=== PATIENT | female | born 1950 | race Caucasian/White ===

== ENCOUNTER 2018-07-12 14:17 | Emergency (ER) | payer OTHER, BC ==
[2018-07-12 14:41] VITALS: BMI 39.1
--- NOTE | 2018-07-12 14:41 | PDOC ---
Rapid Medical Evaluation Chief Complaint: Pain Time Seen by Provider: 07/12/18 14:36 Medical Evaluation: Allergies Allergy/AdvReac Type Severity Reaction Status Date / Time Penicillins Allergy Severe Itching Verified 01/27/16 11:02 07/12/18 14:37 I have performed a brief in-person evaluation of this patient. The patient presents with a chief complaint of: c/o pain to LLQ ( years) worse today - states has UTI but no medications yet Pertinent physical exam findings: abd pain LLQ with radiation to back I have ordered the following: UA/ UCx The patient will proceed to the ED for further evaluation. 07/12/18 14:38 07/12/18 14:41 Discharge Disposition - Diagnosis Abdominal pain - Referrals - Patient Instructions - Post Discharge Activity
[2018-07-12] MEDS ORDERED: morphine SULFATE 4 MG/ML VIAL IVPUSH ONE (17:36)
[2018-07-12 17:44] LABS: EPI CELLS 1.5 /HPF (0-5/HPF); URINE APPEARANCE CLEAR; URINE BACTERIA 1046.2 /hpf (NEGATIVE); URINE BILIRUBIN NEGATIVE (NEGATIVE); URINE CASTS 21 /lpf (0-8); URINE COLOR YELLOW; URINE GLUCOSE (UA) NEGATIVE (NEGATIVE); URINE KETONE NEGATIVE (NEGATIVE); URINE LEUK ESTERASE 2+ (NEGATIVE); URINE NITRITE POSITIVE (NEGATIVE); URINE PROTEIN NEGATIVE (NEGATIVE); URINE UROBILINOGEN 0.2 mg/dL (0.2-1.0); URINE WBC 26 /hpf (0-5)
[2018-07-12] MEDS ORDERED: morphine SULFATE 4 MG/ML VIAL ONE (17:56)
[2018-07-12 18:09] LABS: EOS % 1.1 % (0-4.5); HEMATOCRIT 23.1 % (32.4-45.2); HEMOGLOBIN 7.1 GM/dL (10.7-15.3); LYMPH % 20.3 % (8-40); MCHC 30.6 g/dl (32.0-36.0); MEAN CELL VOLUME 81.9 fl (80-96); MEAN PLT VOLUME 9.3 fl (7.5-11.1); MONO % 6.7 % (3.8-10.2); NEUT % 70.9 % (42.8-82.8); PLATELET COUNT 390 K/MM3 (134-434); RBC 2.83 M/mm3 (3.60-5.2); RDW 16.1 % (11.6-15.6); WHITE BLOOD COUNT 11.8 K/mm3 (4.0-10.0)
--- NOTE | 2018-07-12 18:12 | PDOC ---
History of Present Illness - General Chief Complaint: Pain Stated Complaint: SENT BY PCP Time Seen by Provider: 07/12/18 14:36 History Source: Patient Exam Limitations: No Limitations - History of Present Illness Initial Comments: 07/12/18 18:12 68 yo female pmh HTN, DM, chronic anemia, asthma, 2 left sided hernias shx of hysterectomy presents to the ED with chronic left sided lower abdominal pain that acutely worsened yesterday and today. Pt presents from PCP office for CT scan to r/o acute intra abdominal or bony pathology (discussed with PCP Long) . Pt admits to pain in the same location for months but yesterday and today have been at its worst. Pain described as squeezing, LLQ with radiation to the left flank, made worse with movement. Pt has had multiple GI Doctors assess her with EGDs, colonoscopies and CTs without a diagnosis as to the cause of her pain. Denies F/C/N/V, back pain, changes in bowel or bladder habits, CP, SOB Past History - Past Medical History Allergies/Adverse Reactions: Allergies Allergy/AdvReac Type Severity Reaction Status Date / Time Penicillins Allergy Severe Itching Verified 07/12/18 14:37 Home Medications: Ambulatory Orders Omeprazole 20 mg PO DAILY 12/30/14 Ascorbate Calcium [Vitamin C] 500 mg PO DAILY 06/30/16 Losartan Potassium 100 mg PO DAILY 06/30/16 Sulfamethoxazole/Trimethoprim [Bactrim Ds -] 1 tab PO BID 14 Days #28 tablet Anemia: Yes (IRON DEFICIENCY) Asthma: Yes COPD: No GI Disorders: Yes (GERD;HIATAL HERNIA;MOOKIE ULCERS) Disorders: (GALLSTONES) HTN: Yes - Surgical History Abdominal Surgery: Yes Cholecystectomy: Yes - Immunization History Immunization Up to Date: Yes - Suicide/Smoking/Psychosocial Hx Smoking History: Never smoked Hx Alcohol Use: No Drug/Substance Use Hx: No Substance Use Type: None Hx Substance Use Treatment: No Review of Systems - Review of Systems Constitutional: No: Chills, Fever Respiratory: No: Shortness of Breath Cardiac (ROS): No: Chest Pain ABD/GI: Yes: Other (LLQ abdominal pain). No: Constipated, Diarrhea, Nausea, Vomiting : Yes: Flank Pain (left). No: Burning, Dysuria, Discharge, Frequency, Hematuria, Incontinence Musculoskeletal: No: Back Pain Integumentary: No: Change in Color Neurological: No: Headache, Numbness, Paresthesia, Weakness *Physical Exam - Vital Signs Last Vital Signs Temp Pulse Resp BP Pulse Ox 98.2 F 107 H 16 134/59 L 97 07/12/18 14:37 07/12/18 14:37 07/12/18 14:37 07/12/18 14:37 07/12/18 14:37 - Physical Exam General Appearance: Yes: Nourished, Appropriately Dressed. No: Apparent Distress HEENT: positive: EOMI Neck: positive: Supple Respiratory/Chest: positive: Lungs Clear, Normal Breath Sounds. negative: Crackles, Rales, Rhonchi, Stridor, Wheezing Cardiovascular: positive: Regular Rhythm, S1, S2, Tachycardia. negative: Edema , JVD, Murmur Vascular Pulses: Dorsalis-Pedis (R): 4+, Doralis-Pedis (L): 4+ Gastrointestinal/Abdominal: positive: Flat, Soft, Tenderness (LLQ). negative: Pulsatile Mass, Distended, Guarding, Rebound Musculoskeletal: positive: Normal Inspection, CVA Tenderness (left) Extremity: positive: Normal Capillary Refill, Normal Inspection Integumentary: positive: Normal Color, Dry, Warm Neurologic: positive: Fully Oriented, Alert, Normal Mood/Affect ED Treatment Course - LABORATORY CBC & Chemistry Diagram: 07/12/18 17:50 07/12/18 17:50 - ADDITIONAL ORDERS Additional order review: Laboratory Results 07/12/18 16:56 Urine Color Yellow Urine Appearance Clear Urine pH 6.0 Ur Specific [place] 1.019 Urine Protein Negative Urine Glucose (UA) Negative Urine Ketones Negative Urine Blood Negative Urine Nitrite Positive H Urine Bilirubin Negative Urine Urobilinogen 0.2 Ur Leukocyte Esterase 2+ H Urine WBC (Auto) 26 Urine Casts (Auto) 21 U Epithel Cells (Auto) 1.5 Urine Bacteria (Auto) 1046.2 07/12/18 17:50 RBC 2.83 L MCV 81.9 MCHC 30.6 L RDW 16.1 H MPV 9.3 Neutrophils % 70.9 Lymphocytes % 20.3 Monocytes % 6.7 Eosinophils % 1.1 Basophils % 1.0 - Medications Given in the ED: ED Medications Discontinued Medications Generic Name Dose Route Start Last Admin Trade Name Freq PRN Reason Stop Dose Admin Morphine Sulfate 4 mg 07/12/18 17:36 07/12/18 18:00 Morphine Sulfate IVPUSH 07/12/18 17:37 4 mg ONCE ONE Administration Medical Decision Making - Medical Decision Making 07/12/18 23:26 68 yo female pmh HTN, DM, chronic anemia, asthma, 2 left sided hernias shx of hysterectomy presents to the ED with chronic left sided lower abdominal pain that acutely worsened yesterday and today. Pt presents from PCP office for CT scan to r/o acute intra abdominal or bony pathology (discussed with PCP Long) . Pt admits to pain in the same location for months but yesterday and today have been at its worst. Pain described as squeezing, LLQ with radiation to the left flank, made worse with movement. Pt has had multiple GI Doctors assess her with EGDs, colonoscopies and CTs without a diagnosis as to the cause of her pain. Denies F/C/N/V, back pain, changes in bowel or bladder habits, CP, SOB Vitals show elevated HR otherwise WNL pt admits to excessive abdominal pain, given 4mg morphine with improvement, resting comfortably DDX INLT: UTI, renal stones, diverticulitis, ovarian cyst/rupture EKG NSR without ST changes CBC shows anemia. Hx of chronic anemia with transfusions at [facility]. PCP will be contacted regarding this finding after CTAP resulted CMP, lipase, trops wnl UA shows UTI, pt will be treated with antibiotics Pt pending abdominal CT clinically stable Pt s/o to night team. *DC/Admit/Observation/Transfer Diagnosis at time of Disposition: Abdominal pain, Anemia, Chronic GI bleeding - Discharge Dispostion Disposition: HOME Condition at time of disposition: Stable - Prescriptions Prescriptions: Sulfamethoxazole/Trimethoprim [Bactrim Ds -] 1 tab PO BID 14 Days #28 tablet - Referrals Referrals: Suzy Garcia [Other] - 24 hours Shan Perez MD [Primary Care Provider] - Call tomorrow - Patient Instructions Additional Instructions: You were seen in the Emergency Department for abdominal pain. Your CT scan showed no acute findings. However, your blood counts were low (Hemoglobin 7.1). Further, your urine was concerning for urinary tract infection; this is likely contributing to your abdominal pain. It is very important that you follow up with your talent buyer Dr. Garcia within 24 hours of discharge for further evaluation of your anemia and blood and / or iron transfusions. Further it is recommended that you follow up with your primary care physician within 24- 28 hours of discharge. You will take antibiotic Bactrim one tablet every 12 hours for 14 days for urinary tract infection. Return to the nearest Emergency Department if you experience worsening symptoms , subjective fever,s chills, shortness of breath, chest pain, palpitations, worsening abdominal pain, nausea, vomiting, any rectal bleeding or blood streaked bowel movements, blood with urine, or painful urination, and lightheadedness, dizziness, fall, loss of consciousness, any trauma. - Post Discharge Activity
[2018-07-12 18:43] LABS: ALBUMIN 3.4 g/dl (3.4-5.0); BILIRUBIN,TOTAL 0.3 mg/dL (0.2-1); CALCIUM 8.6 mg/dL (8.5-10.1); CREATININE 0.6 mg/dL (0.55-1.3); POTASSIUM 4.2 mmol/L (3.5-5.1)
--- NOTE | 2018-07-12 19:51 | PDOC ---
*Physical Exam - Vital Signs Last Vital Signs Temp Pulse Resp BP Pulse Ox 98.2 F 107 H 16 134/59 L 97 07/12/18 14:37 07/12/18 14:37 07/12/18 14:37 07/12/18 14:37 07/12/18 14:37 ED Treatment Course - LABORATORY CBC & Chemistry Diagram: 07/12/18 17:50 07/12/18 17:50 - ADDITIONAL ORDERS Additional order review: Laboratory Results 07/12/18 07/12/18 17:50 16:56 Sodium 140 Potassium 4.2 Chloride 105 Carbon Dioxide 28 Anion Gap 7 L BUN 15 Creatinine 0.6 Est GFR (CKD-EPI)AfAm 108.55 Est GFR (CKD-EPI)NonAf 93.66 Random Glucose 99 Calcium 8.6 Total Bilirubin 0.3 AST 11 L ALT 17 Alkaline Phosphatase 125 H Total Protein 7.0 Albumin 3.4 Lipase 107 Urine Color Yellow Urine Appearance Clear Urine pH 6.0 Ur Specific [place] 1.019 Urine Protein Negative Urine Glucose (UA) Negative Urine Ketones Negative Urine Blood Negative Urine Nitrite Positive H Urine Bilirubin Negative Urine Urobilinogen 0.2 Ur Leukocyte Esterase 2+ H Urine WBC (Auto) 26 Urine RBC (Auto) 4.0 Urine Casts (Auto) 21 U Epithel Cells (Auto) 1.5 Urine Bacteria (Auto) 1046.2 07/12/18 17:50 RBC 2.83 L MCV 81.9 MCHC 30.6 L RDW 16.1 H MPV 9.3 Neutrophils % 70.9 Lymphocytes % 20.3 Monocytes % 6.7 Eosinophils % 1.1 Basophils % 1.0 - Medications Given in the ED: ED Medications Discontinued Medications Generic Name Dose Route Start Last Admin Trade Name Freq PRN Reason Stop Dose Admin Morphine Sulfate 4 mg 07/12/18 17:36 07/12/18 18:00 Morphine Sulfate IVPUSH 07/12/18 17:37 4 mg ONCE ONE Administration Medical Decision Making - Medical Decision Making 07/12/18 19:49 Sign out obtained from Dr. Watson. In brief, patient is a 68 year old female with history of hypertension, diabetes mellitus, chronic anemia (baseline Hb 7-8), asthma, surgical history of left sided hernia repair, presents from her primary care physicians office for left lower quadrant abdominal pain acutely worsening over the past two days. Hb 7.1 Patient endorses pain improvement after Morphine. She is hungry and requests food. Pending CT abdomen, pelvis. 07/12/18 21:01 CT abdomen, pelvis shows no acute pathology, or changes compared to prior study. UA suggestive of UTI. Prescribed Bactrim. Patient refuses blood transfusion, further workup here. She would like to follow up with vein pumper at [facility]. Case discussed case with patient's primary care physician. After discussion with patient and primary care physician, patient will be discharged to follow up with primary care physician, and vein pumper tomorrow. Physician referrals provided to patient. Currently, patient has no symptoms of anemia; denies subjective dizziness, changes in vision, lightheadedness, shortness of breath, chest pain, palpitations. Patient tolerating oral intake without abdominal pain, nausea, vomiting. Patient and primary care physician in agreeing with the plan. All questions, concerns addressed and answered. *DC/Admit/Observation/Transfer Diagnosis at time of Disposition: Abdominal pain, Anemia, Chronic GI bleeding - Discharge Dispostion Disposition: HOME Condition at time of disposition: Stable Decision to Admit order: No - Prescriptions Prescriptions: Sulfamethoxazole/Trimethoprim [Bactrim Ds -] 1 tab PO BID 14 Days #28 tablet - Referrals Referrals: hSan Perez MD [Primary Care Provider] - Call tomorrow Suzy Garcia [Other] - 24 hours - Patient Instructions Additional Instructions: You were seen in the Emergency Department for abdominal pain. Your CT scan showed no acute findings. However, your blood counts were low (Hemoglobin 7.1). Further, your urine was concerning for urinary tract infection; this is likely contributing to your abdominal pain. It is very important that you follow up with your vein pumper Dr. Garcia within 24 hours of discharge for further evaluation of your anemia and blood and / or iron transfusions. Further it is recommended that you follow up with your primary care physician within 24- 28 hours of discharge. You will take antibiotic Bactrim one tablet every 12 hours for 14 days for urinary tract infection. Return to the nearest Emergency Department if you experience worsening symptoms , subjective fever,s chills, shortness of breath, chest pain, palpitations, worsening abdominal pain, nausea, vomiting, any rectal bleeding or blood streaked bowel movements, blood with urine, or painful urination, and lightheadedness, dizziness, fall, loss of consciousness, any trauma. - Post Discharge Activity
--- NOTE | 2018-07-12 20:52 | PDOC ---
Documentation entered by Rosina Richards SCRIBE, acting as scribe for Jonathan Hicks MD. Jonathan Hicks MD: This documentation has been prepared by the Susie konx Daisy, SCRIBE, under my direction and personally reviewed by me in its entirety. I confirm that the documentation accurately reflects all work, treatment, procedures, and medical decision making performed by me. Attending Attestation - Resident Resident Name: Greg Watson - ED Attending Attestation I have performed the following: I have examined & evaluated the patient, The case was reviewed & discussed with the resident, I agree w/resident's findings & plan, Exceptions are as noted - HPI HPI: 07/12/18 17:33 The patient is a 68YOF with PMH of DM, HTN, chronic anemia, and asthma, and 2 hernias who presents to the ED for left sided abdominal and left flank pain. Pt states it started 2 days ago. Denies N/V. Denies diarrhea. Denies CP/SOB. Denies F/C. Pt has had similar pain in the past. She has been evaluated by Dr. Miller and Dr. Patel, had multiple colonoscopies and endoscopies, all of which were negative. Allergies: Penicillins Surgeries: hysterectomy PCP: Dr. Alves - Physicial Exam PE: 07/12/18 20:48 GENERAL: Awake, alert, and fully oriented, in no acute distress. HEAD: No signs of trauma EYES: PERRLA, EOMI, sclera anicteric, conjunctiva clear ENT: Auricles normal inspection, hearing grossly normal, nares patent, oropharynx clear without exudates. Moist mucosa NECK: Nontender, no stepoffs, Normal ROM, supple, no lymphadenopathy, JVD, or masses LUNGS: Breath sounds equal, clear to auscultation bilaterally. No wheezes, and no crackles HEART: Regular rate and rhythm, normal S1 and S2, no murmurs, rubs or gallops ABDOMEN: + LLQ tenderness, normoactive bowel sounds. No guarding, no rebound. No masses EXTREMITIES: Normal range of motion, no edema. No clubbing or cyanosis. No cords, erythema, or tenderness NEUROLOGICAL: Cranial nerves II through XII intact. 5/5 strength and sensation in all extremities, Normal speech, normal gait, normal cerebellar function SKIN: Warm, Dry, normal turgor, no rashes or lesions noted. - Medical Decision Making 07/12/18 20:49 68 F with LLQ and L flank pain. Possible pyelo/kidney stone vs colitis/ diverticulitis. - Labs - CT Labs notable for Hb 7.1. This appears to be near pt's baseline. Pt gets regular blood transfusions for chronic anemia. Discussed with Dr. Trinidad, who recommended that pt f/u tomorrow for repeat labs and possible transfusion. Pt without any symptoms of anemia at this time. Denies CP/SOB/palpitations/ lightheadedness. PT also with UTI, will tx with bactrim. CT negative for acute pathology. Pt reassessed - now feels much better. Pain is well controlled Pt is well appearing, with normal vitals. Clinically stable for DC at this time. I discussed the physical exam findings, ancillary test results and final diagnoses with the patient. I answered all of the patient's questions. The patient was satisfied with the care received and felt comfortable with the discharge plan and treatment plan. The patient agrees to follow up with the primary care physician within 24-72 hours.
[2018-07-12 21:15] VITALS: BP 114/54; PULSE 62; TEMP 98.8
== END 2018-07-12 21:15 | disposition home or self-care (01) ==
LOC: JER 14:17
PROC: 3E023NZ Introduction of Analgesics, Hypnotics, Sedatives into Muscle, Percutaneous Approach (ICD-10-PCS; principal; 2018-07-12)
DX: N39.0 Urinary tract infection, site not specified (principal); I10 Essential (primary) hypertension; K92.2 Gastrointestinal hemorrhage, unspecified; E11.9 Type 2 diabetes mellitus without complications; D50.9 Iron deficiency anemia, unspecified; Z87.19 Personal history of other diseases of the digestive system
CPT/HCPCS: 36415; 74177-TC; 80053; 81003; 83605; 83690; 85025; 87086; 87186; 96374; 99283-25

== ENCOUNTER 2018-07-13 06:30 | Observation (INO) | payer OTHER, BC ==
--- NOTE | 2018-07-13 08:23 | PDOC ---
Attending Attestation - Resident Resident Name: Greg Watson - ED Attending Attestation I have performed the following: I have examined & evaluated the patient, The case was reviewed & discussed with the resident, I agree w/resident's findings & plan, Exceptions are as noted - HPI HPI: 07/13/18 08:24 68y F hx ofhtn, hl, transfusion dependent anemia (unknown source), asthma, represents to the ED - pt was seen in the ED last night nad diganosed with a UTI and was noted to be anemic to 7.1. The pt was dc to fu with hemonc as outptaient for outpatient transufsion as she was only minimally sypmtomatic. Pt noted that the cancer center was closed and came back for her transfusion. pt denies any cp, sob, palpitations, but does endorse feeling lightheaded. Pt also notes she has dark colored stool - and wa sworked up by many doctors without a known sourse of bleeding (has had endo, colonscopy, capsule endoscopies). PMD: Kelsie Onc: Dr. Rivera Card: Dr. Abraham GENERAL: The patient is awake, alert, and fully oriented, Nontoxic - in no acute distress. HEAD: Normocephalic, atraumatic. EYES: extraocular movements intact, sclera anicteric, pale conjunctiva clear. ENT: Normal voice, Moist mucous membranes. NECK: Normal range of motion, supple LUNGS: Breath sounds equal, clear to auscultation bilaterally. No wheezes, no rhonchi, no rales. HEART: Regular rate and rhythm, normal S1 and S2 without murmur, rub or gallop. ABDOMEN: Soft, nontender, No guarding, no rebound. . No CVA tenderness EXTREMITIES: Normal range of motion, no edema. NEUROLOGICAL: No facial assymetry, Normal speech, PSYCH: Normal mood, normal affect. SKIN: Warm, Dry, normal turgor, - Physicial Exam PE: 07/13/18 15:16 see above - Medical Decision Making 07/13/18 08:34 will obtain blood work will if low will consider transfusion 07/13/18 10:32 The patient's lab work was reviewed the patient's hemoglobin was noted to be low. A stool guaiac was positive The patient has had a long history of GI bleed of undetermined origin. Patient most recently had a colonoscopy and endoscopy at [facility] in April - there was some gastritis and a hiatal hernia however there was no ulceration or active bleeding noted. Anticipate admission for further management Heart Score/ECG Review - ECG Impressions Comment:: 07/13/18 10:31 Twelve-lead EKG was performed and reviewed by me. There is normal sinus rhythm with a normal rate. Rate of 87 The axis is normal. The intervals are normal. There is normal R wave progression There are no ST or T wave abnormalities. Impression: Normal twelve-lead EKG
[2018-07-13 08:53] LABS: BASO % 0.5 % (0-2.0); EOS % 2.1 % (0-4.5); HEMATOCRIT 21.8 % (32.4-45.2); LYMPH % 20.7 % (8-40); MCH 25.3 pg (25.7-33.7); MCHC 31.6 g/dl (32.0-36.0); MEAN CELL VOLUME 80.2 fl (80-96); MEAN PLT VOLUME 9.8 fl (7.5-11.1); MONO % 6.8 % (3.8-10.2); NEUT % 69.9 % (42.8-82.8); PLATELET COUNT 382 K/MM3 (134-434); RBC 2.72 M/mm3 (3.60-5.2); RDW 15.7 % (11.6-15.6); WHITE BLOOD COUNT 7.8 K/mm3 (4.0-10.0)
--- NOTE | 2018-07-13 08:55 | PDOC ---
History of Present Illness - General Chief Complaint: Blood Transfusion Stated Complaint: PAIN Time Seen by Provider: 07/13/18 07:32 History Source: Patient Exam Limitations: No Limitations - History of Present Illness Initial Comments: 07/13/18 08:44 68 yo female pmh of chronic anemia requiring transfusions, chronic left sided abdominal pain and asthma presents to the ED for transfusion. Pt seen in the ED yesterday for abdominal pain, no acute findings on CT however pt found to have UTI and was anemic 7.1. Pt states she has been worked up for anemia by multiple GI and hematology doctors without an answer. Pt receives out patient transfusions when found to be anemic at [facility] and was DC yesterday from the ED with anemia with PCP and pts consent that she would have a transfusion however, the transfusion center was closed and returned for a transfusion today. Pt states she has been more tired recently but has been able to do her adls. Pt also admits to dark stools. Denies F/C/N/V, CP, SOB. Past History - Past Medical History Allergies/Adverse Reactions: Allergies Allergy/AdvReac Type Severity Reaction Status Date / Time Penicillins Allergy Severe Itching Verified 07/13/18 06:43 Home Medications: Ambulatory Orders Omeprazole 20 mg PO DAILY 12/30/14 Losartan Potassium 100 mg PO DAILY 06/30/16 Aspirin/Acetaminophen/Caffeine [Excedrin Extra Strength Caplet] 1 each PO PRN Clindamycin [Cleocin -] 300 mg PO QID 07/13/18 Anemia: Yes (IRON DEFICIENCY) Asthma: Yes COPD: No GI Disorders: Yes (GERD;HIATAL HERNIA;MOOKIE ULCERS) Disorders: (GALLSTONES) HTN: Yes - Surgical History Abdominal Surgery: Yes Cholecystectomy: Yes - Reproductive History Is Patient Now?: No - Immunization History Immunization Up to Date: Yes - Suicide/Smoking/Psychosocial Hx Smoking History: Never smoked Have you smoked in the past 12 months: No Information on smoking cessation initiated: No Hx Alcohol Use: No Drug/Substance Use Hx: No Substance Use Type: None Hx Substance Use Treatment: No Review of Systems - Review of Systems Constitutional: Yes: Weakness (generalized). No: Chills, Fever Respiratory: No: Shortness of Breath Cardiac (ROS): No: Chest Pain, Edema ABD/GI: No: Constipated, Diarrhea, Nausea, Vomiting : No: Burning, Dysuria, Discharge, Frequency Musculoskeletal: No: Back Pain Integumentary: No: Change in Color, Pallor Neurological: No: Headache, Numbness, Paresthesia *Physical Exam - Vital Signs Last Vital Signs Temp Pulse Resp BP Pulse Ox 99 F 91 H 22 H 151/66 97 07/13/18 06:36 07/13/18 06:36 07/13/18 06:36 07/13/18 06:36 07/13/18 06:36 - Physical Exam General Appearance: Yes: Nourished, Appropriately Dressed. No: Apparent Distress HEENT: positive: EOMI, Normal Voice, Hearing Grossly Normal Neck: positive: Supple Respiratory/Chest: positive: Lungs Clear, Normal Breath Sounds. negative: Accessory Muscle Use, Crackles, Rales, Rhonchi, Stridor, Wheezing Cardiovascular: positive: Regular Rhythm, Regular Rate, S1, S2. negative: Edema , JVD, Murmur Vascular Pulses: Dorsalis-Pedis (R): 4+, Doralis-Pedis (L): 4+ Gastrointestinal/Abdominal: positive: Flat, Soft. negative: Pulsatile Mass, Distended, Guarding, Rebound, Tenderness Rectal Exam: positive: heme positive stool, hemorrhoids Musculoskeletal: negative: CVA Tenderness Extremity: positive: Normal Capillary Refill, Normal Inspection, Normal Range of Motion Integumentary: positive: Normal Color, Dry, Warm. negative: Pale Neurologic: positive: Fully Oriented, Alert, Normal Mood/Affect, Normal Response ED Treatment Course - LABORATORY CBC & Chemistry Diagram: 07/13/18 08:25 07/13/18 08:25 Medical Decision Making - Medical Decision Making 68 yo female pmh of chronic anemia requiring transfusions, chronic left sided abdominal pain and asthma presents to the ED for transfusion. Pt seen in the ED yesterday for abdominal pain, no acute findings on CT however pt found to have UTI and was anemic 7.1. Pt states she has been worked up for anemia by multiple GI and hematology doctors without an answer. Pt receives out patient transfusions when found to be anemic at [facility] and was DC yesterday from the ED with anemia with PCP and pts consent that she would have a transfusion however, the transfusion center was closed and returned for a transfusion today. Pt states she has been more tired recently but has been able to do her adls. Pt also admits to dark stools. Denies F/C/N/V, CP, SOB. vitals WNL NAD, non toxic appearing, ambulates in the ed without difficulty DDX INLT: chronic anemia, GI bleed CBC shows hemoglobin of 6.9. 2 units PRBC ordered. Pt signs consent for blood 07/13/18 10:43 Call placed to pts primary GI, ([facility]) Dr. Bridges, Dr. Diamond covering, chart review shows April EGD wih hiatal hernia and gastritis and colonoscopy showing hemorrhoids and polyp (benign). Dr. Diamond does not have further access into notes or pt information Call placed to Dr. Garcia who is pts machinist helper at [facility], states she has known chronic anemia with likely GI loses, no current recommendations given at this time 07/13/18 11:04 Spoke with pts PCP, Dr. Alves who agrees to hve pt admitted obs med surg for continued blood transfusion and h/h monitoring with GI consult *DC/Admit/Observation/Transfer Diagnosis at time of Disposition: Anemia, GI bleed - Discharge Dispostion Condition at time of disposition: Stable Decision to Admit order: Yes - Referrals - Patient Instructions - Post Discharge Activity
[2018-07-13 09:06] LABS: PROTHROMBIN TIME (PATIENT) 11.8 SEC (9.7-13.0)
[2018-07-13 09:08] LABS: ACTIVATED PTT 20.7 SECONDS (25.2-36.5)
[2018-07-13 09:21] LABS: ALBUMIN 3.3 g/dl (3.4-5.0); BILIRUBIN,TOTAL 0.6 mg/dL (0.2-1); CALCIUM 8.6 mg/dL (8.5-10.1); CREATININE 0.6 mg/dL (0.55-1.3); POTASSIUM 3.9 mmol/L (3.5-5.1); TOT PROT 6.9 g/dl (6.4-8.2)
[2018-07-13 09:25] LABS: HEMOGLOBIN 6.9 GM/dL (10.7-15.3)
[2018-07-13] MEDS ORDERED: PANTOPRAZOLE SODIUM 80 MG in SODIUM CHLORIDE 100 ML IVPB SCH (09:45)
--- NOTE | 2018-07-13 12:26 | CON.GI ---
Consult Consult Specialty:: GI Referred by:: Dr. Perez Reason for Consultation:: Anemia, guaiac + stool - History of Present Illness Chief Complaint: Recalled for anemia History of Present Illness: 68F seen yesterday for pelvic pain in ER and given Abx. Noted Anemic with Hgb of 7. recalled to ER. Hgb 6.9. Described dark BMs (chronic, on and off). Has a history of occult obscure GI bleed and anemia. Has required multiple blood transfusions. Has been evaluated by multiple gastroenterologists in the past for this. She now has GI and hematology care at [facility]. Work-up has included: 05/12/13 EGD: Dr. Mercedes. GERD, large Hiatal Hernia, polyps (benign) 05/13/13 Colonoscopy: Dr. Patel: Normal colon 01/01/15: EGD: Dr. Mercedes: Med sized sliding hiatal hernia and polyps (benign) 01/04/15: Colonoscopy: Dr. Mercedes: diverticulosis, normal otherwise 01/28/16: Colonoscopy: Dr. Mercedes: 2 small rectal polyps, 3mm cecal polyp 07/03/16: EGD: Dr. Tate: 3-4cm hiatal hernia, erosive gastritis in the stomach. Advised double balloon enteroscopy. Ms. Tellez and her daughter remember having double balloon enteroscopy performed at [facility]. It may have been [phone]. Most recently: She now follows at [facility] with Dr. Kenneth Bridges: He performed EGD / Colonoscopy 05/14: The ER resident contacted the non profit financial controller GI for [facility] who was able to access records: Hiatal hernia and unrevealing colonoscopy She also underwent repeat capsule endoscopy performed by Dr. Jimenez at [facility] 07/04/18: Per the patient and her daughter, nothing was found. Currently denies nausea, vomiting, abdominal pain, chect pain, overt rectal bleeding. Denies frequent NSAID use. - History Source History Provided By: Patient, Family Member - Past Medical History Cardio/Vascular: Yes: HTN Pulmonary: Yes: Asthma Gastrointestinal: Yes: GI Bleed (Obscure occult), Other (iron deficiency) ...: No Heme/Onc: Yes: Anemia - Past Surgical History Past Surgical History: Yes: Hysterectomy (Bilateral breast implants), Oopherectomy (bilateral) Additional Surgical History: Abdominoplasty, breast augmentation bilaterally - Alcohol/Substance Use Hx Alcohol Use: No History of Substance Use: reports: None - Smoking History Smoking history: Never smoked Have you smoked in the past 12 months: No - Social History Usual Living Arrangement: With Child ADL: Independent Place of : Other History of Recent Travel: No Home Medications - Allergies Allergies/Adverse Reactions: Allergies Allergy/AdvReac Type Severity Reaction Status Date / Time Penicillins Allergy Severe Itching Verified 07/13/18 06:43 - Home Medications Home Medications: Ambulatory Orders Omeprazole 20 mg PO DAILY 12/30/14 Losartan Potassium 100 mg PO DAILY 06/30/16 Aspirin/Acetaminophen/Caffeine [Excedrin Extra Strength Caplet] 1 each PO PRN Clindamycin [Cleocin -] 300 mg PO QID 07/13/18 Family Disease History - Family Disease History Family Disease History: Other: Father (: unclear causes), Mother (: Asthma complications), Daughter (Anemia) Other Family History: No family history of colorectal cancer or other GI malignancy. Review of Systems - Review of Systems Constitutional: denies: Fever, Unintentional Wgt. Loss Cardiovascular: denies: Chest Pain Respiratory: denies: SOB Gastrointestinal: reports: Constipation (intermittent). denies: Diarrhea, Melena, Rectal Bleeding Physical Exam-GI Vital Signs: Vital Signs Temperature 98.1 F 07/13/18 10:30 Pulse Rate 91 H 07/13/18 10:30 Respiratory Rate 18 07/13/18 10:30 Blood Pressure 150/66 07/13/18 10:30 O2 Sat by Pulse Oximetry (%) 98 07/13/18 10:30 Constitutional: Yes: Calm Eyes: No: Sclera Icterus Cardiovascular: Yes: Regular Rate and Rhythm, Murmur (2/6 systolic) Respiratory: Yes: CTA Bilaterally Gastrointestinal Inspection: Yes: Scars (pelvic) ...Auscultate: Yes: Normoactive Bowel Sounds ...Palpate: Yes: Soft ...Percussion: No: Tympanitic ...Rectal Exam: Yes: Other (no external lesions, no masses, dark brown formed stool. No melena. Guaiac +) Edema: No (No LE edema) Neurological: Yes: Alert Labs: CBC, BMP 07/13/18 08:25 07/13/18 08:25 INR, PTT INR 1.00 (0.83-1.09) 07/13/18 08:25 Problem List - Problems (1) Anemia Assessment/Plan: acute on chronic anemia. FOBT + with history of obscure overt GI bleed with recent significant w/u including EGD/Colon and capsule endoscopy at [facility]. Hemodynamically stable and normal / low BUN does not favor significant UGIB. Advise: PRBC transfusion per PMD. Monitor H/H Protonix 20mg once daily Heme evaluation Unclear if her previous double balloon enteroscopy performed at [facility] was anterograde (starting from the mouth) or retrograde ( starting through the colon). Advised patient that she will need follow-up with Dr. Bridges to review findings from EGD/Colon and discuss next steps of evaluation. I explained that she would likely benefit from continued care at a tertiary care center where further more extensive testing is readily available. Code(s): D64.9 - ANEMIA, UNSPECIFIED
[2018-07-13] MEDS ORDERED: FLU VACCINE QUAD 60 MCG/0.5 ML (MDV 18-19) IM ONE (13:33)
[2018-07-13] MEDS ORDERED: PNEUMOC 13-VAL CONJ-DIP CRM/PF 0.5 ML DISP.SYRIN IM ONE (13:33)
[2018-07-13 13:52] VITALS: BMI 38.3
--- NOTE | 2018-07-13 16:19 | HP ---
DATE OF ADMISSION: 07/13/2018 DATE OF DICTATION: 07/13/2018 HISTORY OF PRESENT ILLNESS: Patient is a 68-year-old female with a history of chronic anemia in the past, recalled to the emergency room because of the low hemoglobin count. Patient had been seen in the ER today for pelvic pain, and had CAT scan of the abdomen and pelvis, no acute pathology, but the urine was positive for UTI, so patient discharged home on antibiotics. Today, the hemoglobin was 7. 1. I recommend to get a blood transfusion, but patient refused to stay and she agreed to go to Hematology at [facility] today for the transfusion, but as per the office of the top hat body maker it was closed today. Patient came to the emergency room for blood transfusion. In the emergency room yesterday, the hemoglobin was 7.1. Patient had a history of chronic anemia, and had been evaluated by multiple gastroenterologists and Hematology, but no cause found. Patient received multiple blood transfusions and iron transfusion and she is anemic on and off. Patient's occupational safety and health manager and top hat body maker are at [facility]. As per the ER note, the patient had an EGD and colonoscopy done in April 2018 and no cause found. Patient had an EGD in 2013, 2014, and 2016, that showed 3-4-cm hiatal hernia and erosive gastritis in the stomach, and had a balloon angioscopy done at [facility] in the past. Had a colonoscopy that showed normal colon in 2013. In 2015, colonoscopy showed 2 small rectal polyps and 1 cecal polyp. Now, she is following at the [facility] by Dr. Bridges. He performed the EGD and colonoscopy in April 2018. The ER resident contacted the on-call GI at [facility] and revealed that the result is hiatal hernia and unrevealing colonoscopy. Patient had a history of capsule endoscopy performed by Dr. Jimenez at [facility] in June 2018 and as per the patient no cause found. Patient denies any nausea, vomiting, abdominal pain, chest pain or overt rectal bleeding. Denies any frequent NSAID use. PAST MEDICAL HISTORY: Hypertension, asthma, GI bleed, and anemia. SURGICAL HISTORY: Patient had a hysterectomy, bilateral breast implants, oophorectomy, and abdominoplasty. SOCIAL HISTORY: Patient never smoked. Living with her daughter. ALLERGIES: Patient is allergic to PENICILLIN. MEDICATION: Patient is taking omeprazole 20 mg daily, losartan 100 mg daily, aspirin Excedrin Extra Strength, and clindamycin 300 mg p.o. q.i.d. started from the emergency room yesterday for the urinary tract infection. FAMILY HISTORY: Father of unclear cause. Mother of asthma. No family history of colorectal cancer or GI malignancy. REVIEW OF SYSTEMS: General: Denies any fever or unintentional weight loss. Cardiovascular System: Denies chest pain. Respiratory: No shortness of breath. Gastrointestinal: Reports constipation intermittent. Denies any diarrhea or rectal bleed. PHYSICAL EXAMINATION: Vital Signs: On examination in the emergency room, temperature 99, pulse 91, respirations 22, blood pressure 151/66, pulse oximetry 97. Head and Neck: On examination normal. Chest: Clear. Cardiovascular System: First and second sounds normal. Abdomen: Soft. No tenderness. No distention. Bowel sounds present. Extremities: No edema. Neurologic: No apparent motor or sensory deficit. Psychiatric: Normal mood. Normal affect. Skin: Warm. Dry. Normal turgor. EKG shows normal sinus rhythm, normal rate 87, there is normal R-wave progression, no ST-T-wave changes. Lab shows hemoglobin 6.9, hematocrit 21.8, WBC is 1.8, platelet 382. PT/INR: PT 11.8, INR 1, PTT 20.7. Chemistry shows sodium 139, potassium 3.9, chloride 105, carbon dioxide 28, BUN 10, creatinine 0.6, glucose 105, AST 13, ALT 19, alkaline phosphatase 133. Urine done on July 12 shows urine nitrite positive, urine bilirubin negative, leukocyte esterase 2+, WBC 26, urine bacteria 1046. Urine culture pending. CAT scan of the abdomen done in the emergency room yesterday for the pelvic pain, no CT findings of acute abnormality, partial imaging of bilateral breast implants, [id number] hiatal hernia, bilateral inguinal hernia containing fat only, probable diffuse hepatosteatosis, status post cholecystectomy. As per the ER, the stool occult was positive. So, kept for observation on the floor for monitoring the anemia and for blood transfusion. ADMITTING DIAGNOSES: Anemia, acute on chronic. Fecal occult blood positive with a history of obscure, overt gastrointestinal bleed, with recent significant followup including EGD, colonoscopy, and capsule endoscopy at [facility]. Patient is hemodynamically stable and normal-low BUN does not favor significant upper GI bleed. PLAN: Blood transfusion. Protonix 20 mg daily. We will monitor the anemia. I explained the importance of following at the tertiary care center for further, more extensive testing for the anemia. Patient stable on the floor. Admitting diagnosis anemia and plan blood transfusion and monitor hemoglobin and hematocrit and patient is stable. ESTHER LEIGH M.D. [id number]
[2018-07-13] MEDS: ACETAMINOPHEN 325 MG TABLET (FP) PO PRN ×2 (16:35→23:36)
[2018-07-13] MEDS: CLINDAMYCIN HCL 150 MG CAPSULE (FP) PO SCH ×2 (18:17→23:40)
[2018-07-13] MEDS: SULFAMETHOXAZOLE/TRIMETHOPRIM 800MG/160MG D.S. TABLET PO SCH (21:08)
[2018-07-14] MEDS: CLINDAMYCIN HCL 150 MG CAPSULE (FP) PO SCH ×2 (05:35→11:34)
[2018-07-14 07:08] LABS: BASO % 1.2 % (0-2.0); EOS % 3.9 % (0-4.5); HEMATOCRIT 28.2 % (32.4-45.2); HEMOGLOBIN 9.2 GM/dL (10.7-15.3); LYMPH % 24.1 % (8-40); MCH 26.9 pg (25.7-33.7); MCHC 32.6 g/dl (32.0-36.0); MEAN CELL VOLUME 82.3 fl (80-96); MONO % 9.2 % (3.8-10.2); NEUT % 61.6 % (42.8-82.8); PLATELET COUNT 362 K/MM3 (134-434); RBC 3.42 M/mm3 (3.60-5.2); RDW 15.3 % (11.6-15.6); WHITE BLOOD COUNT 7.3 K/mm3 (4.0-10.0)
[2018-07-14 07:31] LABS: ALBUMIN 3.2 g/dl (3.4-5.0); BILIRUBIN,TOTAL 1.2 mg/dL (0.2-1); CALCIUM 8.4 mg/dL (8.5-10.1); CREATININE 0.6 mg/dL (0.55-1.3); POTASSIUM 4.3 mmol/L (3.5-5.1); TOT PROT 6.7 g/dl (6.4-8.2)
[2018-07-14] MEDS: SULFAMETHOXAZOLE/TRIMETHOPRIM 800MG/160MG D.S. TABLET PO SCH (09:09)
--- NOTE | 2018-07-14 09:59 | PN ---
Progress Note, Physician Chief Complaint: Pt resting comfortably no complaints today No dark colored stool hb/hct improved ,9.2/28.2 - Current Medication List Current Medications: Active Medications Acetaminophen (Tylenol -) 650 mg PO Q6H PRN PRN Reason: PAIN LEVEL 3-5 Last Admin: 07/13/18 23:36 Dose: 650 mg Clindamycin HCl (Cleocin -) 300 mg PO Q6HPO [facility] Stop: 07/17/18 10:00 Last Admin: 07/14/18 05:35 Dose: 300 mg Losartan Potassium (Cozaar -) 100 mg PO DAILY [facility] Last Admin: 07/14/18 09:09 Dose: 100 mg Pantoprazole Sodium (Protonix -) 40 mg PO DAILY [facility] Last Admin: 07/14/18 09:09 Dose: 40 mg Trimethoprim/Sulfamethoxazole (Bactrim Ds -) 1 each PO BID [facility] Last Admin: 07/14/18 09:09 Dose: 1 each - Objective Vital Signs: Vital Signs Temperature 98.6 F 07/14/18 08:46 Pulse Rate 75 07/14/18 08:46 Respiratory Rate 18 07/14/18 02:00 Blood Pressure 136/63 07/14/18 08:46 O2 Sat by Pulse Oximetry (%) 98 07/14/18 05:00 Constitutional: Yes: No Distress Eyes: Yes: Conjunctiva Clear HENT: Yes: Atraumatic Neck: Yes: Supple, Trachea Midline Cardiovascular: Yes: Regular Rate and Rhythm Respiratory: Yes: Regular, CTA Bilaterally Gastrointestinal: Yes: WNL, Normal Bowel Sounds Musculoskeletal: Yes: WNL Extremities: Yes: WNL Edema: No Peripheral Pulses WNL: Yes Neurological: Yes: WNL, Alert ...Motor Strength: WNL Psychiatric: Yes: WNL, Alert Labs: CBC, BMP 07/14/18 05:15 07/14/18 05:15 INR, PTT INR 1.00 (0.83-1.09) 07/13/18 08:25 Assessment/Plan acute on chronic anemia UTI HTN Asthma hiatal hernia PLAN D/C home as per pt is stable and HB/HCT improved and Pt is assyptomatic Continue antibiotics Continue home meds F/u with GI and hematology FRITZ F?U with PMD in 1 wk will f/u urine culture
[2018-07-14] MEDS ORDERED: LOSARTAN POTASSIUM 50 MG TABLET (FP) PO SCH (10:00)
[2018-07-14] MEDS ORDERED: PANTOPRAZOLE 40 MG TABLET (FP) PO SCH (10:00)
--- NOTE | 2018-07-14 12:34 | EKG ---
Test Reason : Blood Pressure : / mmHG Vent. Rate : 087 BPM Atrial Rate : 087 BPM P-R Int : 164 ms QRS Dur : 086 ms QT Int : 364 ms P-R-T Axes : 062 047 047 degrees QTc Int : 438 ms NORMAL SINUS RHYTHM NORMAL ECG WHEN COMPARED WITH ECG OF 24-JAN-2016 13:50, NO SIGNIFICANT CHANGE WAS FOUND Confirmed by FLORI ROSAS MD ([id number]) on 07/14/2018 12:33:29 PM Referred By: Confirmed By:FLORI ROSAS MD
[2018-07-14 13:33] VITALS: BP 132/62; PULSE 72; TEMP 98
--- NOTE | 2018-07-14 14:37 | DS ---
DATE OF ADMISSION: 07/13/2018 DATE OF DISCHARGE: 07/14/2018 The patient is a 68-year-old female with past medical history of anemia, asthma, hypertension, and with UTI, admitted for anemia. Patient was seen in the emergency room on July 12 for lower abdominal pain and found to have UTI and discharged home. Back then, the hemoglobin was 7.1. Recommended to have blood transfusion, which patient refused, and patient wants to follow with her GI next day morning. She could not reach the GI physician, so she came to the emergency room for blood transfusion. Patient was having mild dizziness. There is no chest pain, no palpitation. When she came to the emergency room on July 13, patient's hemoglobin was 6.9 and hematocrit 21.8, and a comprehensive panel was normal. As per the past history, patient had extensive workup for anemia with repeated EGD and colonoscopy and that was normal. It shows only hiatal hernia and internal hemorrhoids. Last colonoscopy and EGD were done in April, as per the patient, by the GI at [facility]. GI consult was done while patient was in the hospital for observation. Patient got 2 units of blood transfusion, and after that the hemoglobin was 9.2 and hematocrit 28.2. Patient is asymptomatic and stable. At the time of admission, the vitals were stable. Education given to the patient regarding the followup with GI and recommended to get the treatment from tertiary care center. Patient understood and agreed. Recommend to discharge patient home, in a stable condition. Recommend to see GI within 3 days, and hematology within 3 days. Patient was given a prescription for Bactrim DS for the urinary tract infection, and recommended to follow with PMD's office for followup of the urine culture. Patient discharged home in stable condition. ESTHER LEIGH M.D. [id number]
== END 2018-07-14 13:30 | disposition home or self-care (01) ==
LOC: JER 06:30 → JERBED 11:40 → J8W 13:28
PROVIDERS: ADMIT Family Medicine; ATTEND Family Medicine
PROC: 30233N1 Transfusion of Nonautologous Red Blood Cells into Peripheral Vein, Percutaneous Approach (ICD-10-PCS; principal; 2018-07-13)
PROC: 3E033GC Introduction of Other Therapeutic Substance into Peripheral Vein, Percutaneous Approach (ICD-10-PCS; 2018-07-13)
DX: D50.9 Iron deficiency anemia, unspecified (principal); K92.2 Gastrointestinal hemorrhage, unspecified; I10 Essential (primary) hypertension; E78.5 Hyperlipidemia, unspecified; J45.909 Unspecified asthma, uncomplicated; K21.9 Gastro-esophageal reflux disease without esophagitis; K44.9 Diaphragmatic hernia without obstruction or gangrene; N39.0 Urinary tract infection, site not specified
CPT/HCPCS: 36415; 36430; 36511; 80053; 82272; 85025; 85610; 85730; 86850; 86870; 86900; 86901; 86902; 86922; 93005; 93010; 96374; 99285-25; G0378; P9038; P9058

== ENCOUNTER 2018-09-09 01:02 | Emergency (ER) | payer OTHER, BC ==
[2018-09-09 01:56] VITALS: BP 139/74; PULSE 75; TEMP 98; BMI 37.8
[2018-09-09] MEDS ORDERED: ACETAMINOPHEN 325 MG TABLET (FP) PO ONE (02:53)
[2018-09-09] MEDS ORDERED: ACETAMINOPHEN 325 MG TABLET (FP) ONE (02:57)
--- NOTE | 2018-09-09 02:58 | PDOC ---
History of Present Illness <Lori Martinez - Last Filed: 09/09/18 07:07> - History of Present Illness Initial Comments: 09/09/18 02:53 68 yo F with h/o HTN, COPD who p/w closed head injury s/p fall from bed. Patient reports fall from bed this evening. States that she rolled from her bed (appx 2 ft.) and landed on the floor, and hit forehead on tile floor. On ground for 5-10 minutes before daughter ( at bedside) assisted patient to feet. Patient ambulatory following fall. Reports frontal dull YI, with no identifiable triggers or alleviators. Took Motrin x 1 with no releif. Also endorses slight posterior upper neck pain. Not on AC. Patient denies vision change, palpitations, cough, wheezing, orthopena, PND, leg swelling/pain, N/V, F,C, CP, SOB, urinary complaints, hematuria, BPR, abdominal pain, diarrhea, constipation, lightheadedness, weakness, sensory changes. PMHx: as noted above ROS: as noted SHx: Denies Etoh, IVDA, tobacco use Allergies: NKDA <Edgar Hawley - Last Filed: 09/09/18 07:25> - General Chief Complaint: Injury Stated Complaint: FALL Time Seen by Provider: 09/09/18 02:43 Past History <Lori Martinez - Last Filed: 09/09/18 07:07> - Past Medical History Anemia: Yes (IRON DEFICIENCY) Asthma: Yes Cancer: No COPD: No GI Disorders: Yes (GERD;HIATAL HERNIA;MOOKIE ULCERS) Disorders: (GALLSTONES) HTN: Yes - Surgical History Abdominal Surgery: Yes Cholecystectomy: Yes - Immunization History Immunization Up to Date: Yes - Suicide/Smoking/Psychosocial Hx Smoking History: Never smoked Have you smoked in the past 12 months: No Hx Alcohol Use: No Drug/Substance Use Hx: No Substance Use Type: None Hx Substance Use Treatment: No <Edgar Hawley - Last Filed: 09/09/18 07:25> - Past Medical History Allergies/Adverse Reactions: Allergies Allergy/AdvReac Type Severity Reaction Status Date / Time Penicillins Allergy Severe Itching Verified 09/09/18 01:42 Home Medications: Ambulatory Orders Omeprazole 20 mg PO DAILY 12/30/14 Losartan Potassium 100 mg PO DAILY 06/30/16 Aspirin/Acetaminophen/Caffeine [Excedrin Extra Strength Caplet] 1 each PO PRN Clindamycin [Cleocin -] 300 mg PO QID 07/13/18 Pantoprazole Sodium [Protonix] 40 mg PO DAILY 30 Days tablet. 07/14/18 Sulfamethoxazole/Trimethoprim [Bactrim Ds -] 1 tab PO BID #14 tablet 07/14/18 levoFLOXacin [Levaquin -] 500 mg PO DAILY #7 tablet 09/09/18 Review of Systems - Review of Systems Comments:: 09/09/18 02:58 GENERAL/CONSTITUTIONAL: No fever or chills. No weakness. HEAD, EYES, EARS, NOSE AND THROAT: No change in vision. No ear pain or discharge. No sore throat. CARDIOVASCULAR: No chest pain or shortness of breath RESPIRATORY: No cough, wheezing, or hemoptysis. GASTROINTESTINAL: No nausea, vomiting, diarrhea or constipation. GENITOURINARY: No dysuria, frequency, or change in urination. MUSCULOSKELETAL: No joint or muscle swelling or pain. No neck or back pain. SKIN: No rash NEUROLOGIC: + headache. no vertigo, loss of consciousness, or change in strength /sensation. ENDOCRINE: No increased thirst. No abnormal weight change HEMATOLOGIC/LYMPHATIC: No anemia, easy bleeding, or history of blood clots. ALLERGIC/IMMUNOLOGIC: No hives or skin allergy. <Edgar Hawley - Last Filed: 09/09/18 07:25> *Physical Exam - Vital Signs Last Vital Signs Temp Pulse Resp BP Pulse Ox 98.0 F 75 18 139/74 97 09/09/18 01:39 09/09/18 01:39 09/09/18 01:39 09/09/18 01:39 09/09/18 01:39 <Lori Martinez - Last Filed: 09/09/18 07:07> - Vital Signs Last Vital Signs Temp Pulse Resp BP Pulse Ox 98.0 F 75 18 139/74 97 09/09/18 01:39 09/09/18 01:39 09/09/18 01:39 09/09/18 01:39 09/09/18 01:39 - Physical Exam Comments: 09/09/18 02:58 GENERAL: Awake, alert, and fully oriented, in no acute distress HEAD: No signs of trauma, normocephalic, atraumatic EYES: PERRLA, EOMI, sclera anicteric, conjunctiva clear ENT: Auricles normal inspection, hearing grossly normal, nares patent, oropharynx clear without exudates. Moist mucosa NECK: Normal ROM, supple, no lymphadenopathy, JVD, or masses LUNGS: No distress, speaks full sentences, clear to auscultation bilaterally HEART: Regular rate and rhythm, normal S1 and S2, no murmurs, rubs or gallops, peripheral pulses normal and equal bilaterally. ABDOMEN: Soft, nontender, normoactive bowel sounds. No guarding, no rebound. No masses BACK: + cervical paraspinal ttp. Negative midline ttp, bony deformity, step-off , skin change. EXTREMITIES : Normal inspection, Normal range of motion, no edema. No clubbing or cyanosis. NEUROLOGICAL: Cranial nerves II through XII grossly intact. Normal speech, normal gait, no focal sensorimotor deficits SKIN: Warm, Dry, normal turgor, no rashes or lesions noted <Edgar Hawley - Last Filed: 09/09/18 07:25> ED Treatment Course - ADDITIONAL ORDERS Additional order review: Laboratory Results 09/09/18 05:50 Urine Color Yellow Urine Appearance Cloudy Urine pH 5.5 Ur Specific [place] 1.025 Urine Protein Negative Urine Glucose (UA) Negative Urine Ketones Negative Urine Blood Trace Urine Nitrite Positive H Urine Bilirubin Negative Urine Urobilinogen 0.2 Ur Leukocyte Esterase 2+ H Urine WBC (Auto) 66 Urine RBC (Auto) 3 Urine Casts (Auto) 140 U Epithel Cells (Auto) 0.9 Urine Bacteria (Auto) 7499.2 - Medications Given in the ED: ED Medications Discontinued Medications Generic Name Dose Route Start Last Admin Trade Name Freq PRN Reason Stop Dose Admin Acetaminophen 650 mg 09/09/18 02:53 09/09/18 03:01 Tylenol - PO 09/09/18 02:54 650 mg ONCE ONE Administration Levofloxacin 500 mg 09/09/18 06:24 09/09/18 06:48 Levaquin - PO 09/09/18 06:25 500 mg ONCE ONE Administration <Lori Martinez - Last Filed: 09/09/18 07:07> Medical Decision Making - Medical Decision Making 09/09/18 02:56 68 yo F with h/o HTN, COPD who p/w closed head injury s/p fall from bed. GCS 15 , Vitals wnl, AF, A&OX3. Physical exam unremarkable. Not on AC. No evidence basilar skull fracture, or other obvious bony abnml, deformity necessitating imaging. CTH r/o skull fracture, hematoma, hemorrhage. Pain control, reassess. ED Course: CTH, C-SPINE CT Tylenol 09/09/18 07:19 CTH, C-SPINE: Unremarkable UA Laboratory Tests 09/09/18 05:50 Urine Color Yellow Urine Appearance Cloudy Urine Nitrite Positive H Ur Leukocyte Esterase 2+ H Urine WBC (Auto) 66 Urine RBC (Auto) 3 Urine Bacteria (Auto) 7499.2 09/09/18 07:24 CTH, C-SPINE with no acute change 09/09/18 07:22 Levaquin sent to pharmacy Patient stable for d/c with return precautions <Edgar Hawley - Last Filed: 09/09/18 07:25> *DC/Admit/Observation/Transfer <Lori Martinez - Last Filed: 09/09/18 07:07> - Discharge Dispostion Decision to Admit order: No <Edgar Hawley - Last Filed: 09/09/18 07:25> Diagnosis at time of Disposition: Fall from bed Qualifiers: Encounter type: initial encounter Qualified Code(s): W06.XXXA - Fall from bed, initial encounter UTI (urinary tract infection) Qualifiers: Urinary tract infection type: site unspecified Hematuria presence: without hematuria Qualified Code(s): N39.0 - Urinary tract infection, site not specified - Discharge Dispostion Disposition: HOME Condition at time of disposition: Stable - Prescriptions Prescriptions: levoFLOXacin [Levaquin -] 500 mg PO DAILY #7 tablet - Patient Instructions Printed Discharge Instructions: Urinary Tract Infection, How to Prevent Falls Additional Instructions: Please return to the emergency department with any new or worsening symptoms or concerns. Please follow up with your primary care physician within 72 hours. Take Levaquin daily for 7 days to treat with UTI.
--- NOTE | 2018-09-09 05:30 | PDOC ---
Attending Attestation - Resident Resident Name: Edgar Hawley - ED Attending Attestation I have performed the following: I have examined & evaluated the patient, The case was reviewed & discussed with the resident, I agree w/resident's findings & plan - HPI HPI: 09/09/18 06:56 Pt fell out of bed. No real complaints. SLight YI - Physicial Exam PE: 09/09/18 06:56 Agree with resident exam - Medical Decision Making 09/09/18 06:56 Home with levaquin for UTI, so long as the CT scans are normal. 09/09/18 06:57 Pt stable for discharge 09/09/18 07:05 Patient Name: KISHOR CHEEK THIS IS A PRELIMINARY REPORT FROM [facility] DATE OF SERVICE: 2018-09-09 03:04:13 IMAGES: [id number] EXAM: CT CERVICAL SPINE WITHOUT CONTRAST No acute fracture or malalignment. Surgical changes C4-C7. Minimal spondylosis 09/09/18 07:05 Patient Name: KISHOR CHEEK THIS IS A PRELIMINARY REPORT FROM [facility] DATE OF SERVICE: 2018-09-09 03:09:30 IMAGES: 164 EXAM: CT HEAD WITHOUT CONTRAST No acute brain parenchymal abnormality. No hemorrhage, mass or acute territorial infarct. No skull fracture. Clear visualized paranasal sinuses. Visualized mastoid air cells clear. One or more of the following dose reduction techniques were used 09/09/18 07:05
[2018-09-09 06:12] LABS: EPI CELLS 0.9 /HPF (0-5/HPF); HYALINE CASTS 140 /lpf (0-8); PH,URINE 5.5 (5.0-8.0); URINE APPEARANCE CLOUDY; URINE BACTERIA 7499.2 /hpf (NEGATIVE); URINE BILIRUBIN NEGATIVE (NEGATIVE); URINE COLOR YELLOW; URINE GLUCOSE (UA) NEGATIVE (NEGATIVE); URINE KETONE NEGATIVE (NEGATIVE); URINE LEUK ESTERASE 2+ (NEGATIVE); URINE NITRITE POSITIVE (NEGATIVE); URINE PROTEIN NEGATIVE (NEGATIVE); URINE RBC 3 /hpf (0-4); URINE UROBILINOGEN 0.2 mg/dL (0.2-1.0); URINE WBC 66 /hpf (0-5)
== END 2018-09-09 07:22 | disposition home or self-care (01) ==
LOC: JER 01:02
DX: S09.8XXA Other specified injuries of head, initial encounter (principal); W06.XXXA Fall from bed, initial encounter; Y93.89 Activity, other specified; Y92.032 Bedroom in apartment as the place of occurrence of the external cause; Y99.8 Other external cause status; N39.0 Urinary tract infection, site not specified; I10 Essential (primary) hypertension; J45.909 Unspecified asthma, uncomplicated; J44.9 Chronic obstructive pulmonary disease, unspecified; D50.9 Iron deficiency anemia, unspecified
CPT/HCPCS: 70450-TC; 72125-TC; 81003; 99282-25